=== PATIENT | male | born 1975 | race Caucasian/White ===

== ENCOUNTER 2017-07-20 08:51 | Day surgery (SDC) | payer OTHER ==
[2017-07-20] MEDS ORDERED: PROPOFOL 200 MG/20 ML VIAL As Ordered ×2 (08:53)
[2017-07-20] MEDS ORDERED: LIDOCAINE 2% INJ 100 MG/5 ML SDV (FOR ANES.) As Ordered (08:54)
[2017-07-20] MEDS: NS 1,000 ML IV (09:57)
[2017-07-20] MEDS ORDERED: fentaNYL 100 MCG/2 ML INJECTION (J3010) As Ordered (10:36)
== END 2017-07-20 11:37 | disposition home or self-care (01) ==
LOC: M OPP 08:51
DX: R13.10 Dysphagia, unspecified (principal); R12 Heartburn; K22.8 Other specified diseases of esophagus; K21.9 Gastro-esophageal reflux disease without esophagitis; Z79.899 Other long term (current) drug therapy; Z80.1 Family history of malignant neoplasm of trachea, bronchus and lung; Z80.41 Family history of malignant neoplasm of ovary; Z80.0 Family history of malignant neoplasm of digestive organs
CPT/HCPCS: 43239

== ENCOUNTER 2017-11-12 10:28 | Day surgery (SDC) | payer OTHER ==
[~2017-11-12 10:28] MED LIST: CIPRODEX OTIC SUSP 7.5ML As Ordered
[2017-11-12] MEDS: LR 1,000 ML IV (11:07)
[2017-11-12] MEDS ORDERED: MIDAZOLAM INJ 2 MG/2 ML VIAL (J2250) As Ordered (12:35)
[2017-11-12] MEDS ORDERED: LIDOCAINE 2% INJ 100 MG/5 ML SDV (FOR ANES.) As Ordered (12:35)
[2017-11-12] MEDS ORDERED: PROPOFOL 200 MG/20 ML VIAL As Ordered ×2 (12:35→14:03)
[2017-11-12] MEDS ORDERED: fentaNYL 100 MCG/2 ML INJECTION (J3010) As Ordered (12:35)
[2017-11-12] MEDS ORDERED: dexameTHASONE 4 MG/ML 1ML VIAL (J1100) As Ordered ×2 (13:03)
[2017-11-12] MEDS ORDERED: KETOROLAC 60 MG/2 ML VIAL (J1885) As Ordered (13:03)
[2017-11-12] MEDS ORDERED: ONDANSETRON 4MG/2ML VIAL (J2405) As Ordered (13:03)
[2017-11-12] MEDS ORDERED: ONDANSETRON 4MG/2ML VIAL (J2405) IV (13:45)
[2017-11-12] MEDS ORDERED: IBUPROFEN 800 MG TAB PO (13:45)
[2017-11-12] MEDS ORDERED: fentaNYL 100 MCG/2 ML INJECTION (J3010) IV (13:45)
[2017-11-12] MEDS ORDERED: LR 1,000 ML IV (13:45)
[2017-11-12] MEDS ORDERED: PERCOCET 5MG/325MG TAB PO (13:45)
[2017-11-12] MEDS ORDERED: HYDROMORPHONE HCL 0.5 MG/ 0.5 ML SYRINGE (J1170 PER 1) IV (13:45)
== END 2017-11-12 14:13 | disposition home or self-care (01) ==
LOC: M SDC 10:28
DX: H65.21 Chronic serous otitis media, right ear (principal); H69.81 Other specified disorders of Eustachian tube, right ear
CPT/HCPCS: 69436

== ENCOUNTER 2020-02-17 16:20 | Emergency (ER) | payer OTHER ==
[~2020-02-17] VITALS: Ht 170.2 cm; Wt 71.5 kg
[~2020-02-17 16:20] MED LIST changes: -CIPRODEX OTIC SUSP 7.5ML As Ordered; +FLOV100A3 IN; +OMEP40CA97 PO
[2020-02-17] MEDS ORDERED: MELO15TA28 PO (16:27)
[2020-02-17 17:47] VITALS: BP 135/83
== END 2020-02-17 18:06 | disposition home or self-care (01) ==
LOC: M ED 16:20
DX: R09.89 Other specified symptoms and signs involving the circulatory and respiratory systems (principal); K21.9 Gastro-esophageal reflux disease without esophagitis; Z79.899 Other long term (current) drug therapy

== ENCOUNTER 2021-04-25 15:46 | Inpatient (IN) | payer OTHER ==
[~2021-04-25] VITALS: Ht 152.4 cm; Wt 77.8 kg
[~2021-04-25 15:46] MED LIST changes: +FLOV100A IN; -FLOV100A3 IN; +MELO15TA28 PO; +OMEP40CA4 PO; -OMEP40CA97 PO
[2021-04-25] MEDS ORDERED: WELL100T2 PO (16:05)
--- NOTE | 2021-04-25 16:50 | REP ---
INDICATION: CVA - LEFT FACIAL DROOP COMPARISON: None. TECHNIQUE: Axial noncontrast images from the skull base to the vertex with coronal reformations. This CT examination was performed using the following dose reduction techniques: Automated exposure control, adjustment of mA and/or kv according to the patient's size, and use of iterative reconstruction technique. FINDINGS: The ventricles, sulci, and cisterns are normal in position and appearance. Trin[place]-white differentiation is maintained. No acute intracranial hemorrhage, mass/mass effect, pathology or trauma/injury. No evidence for acute infarction. No extra-axial fluid collection. Calvarium is intact. Paranasal sinuses and mastoid air cells are clear. IMPRESSION: Normal noncontrast head CT. No evidence for acute intracranial pathology or trauma/injury. <Electronically signed by Driss Simental > 04/25/21 [id number]
--- NOTE | 2021-04-25 16:56 | REP ---
INDICATION: CVA. COMPARISON: None. TECHNIQUE: Single portable AP view of the chest was performed. FINDINGS: There is no acute infiltrate or pulmonary edema. Lungs are clear. The heart is not significantly enlarged. The mediastinal silhouette is unremarkable. The visualized osseous structures are intact. IMPRESSION: No acute pulmonary disease. <Electronically signed by Toribio Trinidad > 04/25/21 [id number]
[2021-04-25 17:05] LABS: BASO # 0.1 10^3/uL (0.0-0.2); BASO % 0.9 % (0.0-1.0); EOS # 0.4 10^3/uL (0.0-0.5); EOS % 5.5 % (0.0-3.0); HEMATOCRIT 45.2 % (42.0-52.0); HEMOGLOBIN 15.2 g/dl (13.5-17.5); LYMPH # 2.3 10^3/uL (1.5-5.0); LYMPH % 30.2 % (24.0-44.0); MEAN CORPUSCULAR HEMOGLOBIN 29.3 pg (27.0-33.0); MEAN CORPUSCULAR HGB CONC 33.6 g/dl (32.0-36.5); MEAN CORPUSCULAR VOLUME 87.3 fl (80.0-96.0); MONO # 0.9 10^3/uL (0.0-0.8); MONO % 11.3 % (2.0-8.0); NEUTROPHILS # 3.9 10^3/uL (1.5-8.5); NEUTROPHILS % 51.3 % (36.0-66.0); PLATELET COUNT, AUTOMATED 342 10^3/uL (150-450); RED BLOOD COUNT 5.18 10^6/uL (4.30-6.10); WHITE BLOOD COUNT 7.5 10^3/uL (4.0-10.0)
[2021-04-25 17:16] LABS: BLOOD UREA NITROGEN 15 MG/DL (7-18); CALCIUM LEVEL 9.6 MG/DL (8.5-10.1); CARBON DIOXIDE LEVEL 28 MEQ/L (21-32); CHLORIDE LEVEL 105 MEQ/L (98-107); CREATININE FOR GFR 0.88 MG/DL (0.70-1.30); GLOMERULAR FILTRATION RATE > 60.0 (>60); GLUCOSE, FASTING 87 MG/DL (70-100); POTASSIUM SERUM 4.2 MEQ/L (3.5-5.1); SODIUM LEVEL 139 MEQ/L (136-145)
[2021-04-25] MEDS ORDERED: ASPIRIN 325 MG TAB PO ONE (17:25)
[2021-04-25] MEDS ORDERED: ENOXAPARIN 40MG/0.4ML SYRINGE (J1650 PER 10MG) SC SCH (18:00)
[2021-04-25 18:08] LABS: RSV AMPLIFICATION NEGATIVE (NEGATIVE)
[2021-04-25 18:12] LABS: INR 1.01; PROTHROMBIN TIME 13.7 SECONDS (12.7-14.5)
[2021-04-25] MEDS ORDERED: HOME MED LIST COMPLETE! XX SCH (18:15)
--- NOTE | 2021-04-25 18:21 | HPEPDOC ---
[facility] Medical History & Physical Date of Admission Apr 25, 2021 Date of Service: Apr 25, 2021 History and Physical CHIEF COMPLAINT: "all this", pointed to face HISTORY OF PRESENT ILLNESS: 45-year-old male presented emergency room department with complaints of facial weakness. His symptoms began approximately 3 to 4 days ago with his noticing he is unable to close his left eye. He recollects approximately 3 to 4 weeks ago being evaluated for an ear infection and at the time having numbness around the region and believes his symptoms started then. He then began to have tongue deviation, facial droop, and decreased sensation over the left side of his face which he feels been more prominent since the last 3 to 4 days. Denies fever, chills, headache, blurry vision, focal weakness, abdominal pain, nausea, vomiting, problems with urination and bowel movements. Denies bowel bladder incontinence, saddle anesthesia. Of note, patient has had recurrent ear infections and was evaluated approximately 3 to 4 weeks ago and placed on Augmentin for 10 days. He was to see have a ENT evaluation in the next week or 2. He reports blowing his nose hard enough causing, what he believes, now is to his left eardrum. At this junction, he denies discharge, fever, chills, problems with hearing. In the emergency room department his vitals and laboratory work-up was fairly unremarkable. A CT scan of the brain was done and showed no acute pathology. He was admitted to hospitalist service to rule out a stroke. 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 Denies smoking, drinking, use of recreational drugs FAMILY HISTORY: Mother: Cervical cancer ALLERGIES: Please see below. REVIEW OF SYSTEMS: 10 point review of system was negative except for what is noted in the HPI HOME MEDICATIONS: Please see below. PHYSICAL EXAMINATION: VITAL SIGNS: Please see below General: Lying in bed, no acute distress Head/Neck/Throat: Trachea midline, mucous membranes moist. Otoscope was utilized right ear canal revealed cerumen, tympanic membrane was unremarkable. Left ear canal revealed a erythema around the 3 o'clock position, there is no discharge or hemorrhage appreciated. Eyes: Sclera anicteric, no erythema or discharge appreciated bilaterally Thorax: Normal respiratory effort on room air, lungs clear to auscultation bilaterally, no wheezes/rales/rhonchi Cardiovascular: Normal rate, regular rhythm, normal S1, S2; radial and dorsal pedis pulses are palpable and 2+ Abdomen: Bowel sounds present, soft/nontender/nondistended Genitourinary: No CVA tenderness, no Tompkins in place Musculoskeletal: Moving all extremities, no edema Skin: Warm, dry Neurologic: AAOx3. Cranial nerves II -12 intact, except for: He is able to close his left eye but decreased strength; tongue deviation to the right, but able to move it past midline to left/right/up and down; unable to flare left nostril; decreased sensation in V1, V2, and V3 when compared to contralateral side; left facial droop; when asked to puff his cheeks they are easily depressed. Strength in the upper and lower extremity 5/5. Sensation to gross touch in the upper and lower extremities intact. Cerebellar examination including [id number], [id number] is normal, there is no dysdiadochokinesia. No swelling on standing. Patellar and biceps reflex intact. Babinski's normal LABORATORY DATA: See below. IMAGING: Please see imaging section MICROBIOLOGY: Please see below. ASSESSMENTPLAN: 45-year-old male presented emergency room department with left-sided facial weakness. #Facial weakness -Rule out CVA: Follow-up on MRI of the brain, MRA of the neck, carotid ultrasounds, echocardiogram with agitated saline. 325 mg aspirin given in the emergency room department, will continue with 81 mg daily. Atorvastatin 40 mg. PT/OT/speech. #GERD -Continue with omeprazole #DVT prophylaxis -Lovenox Vital Signs Vital Signs Date Time Temp Pulse Resp B/P (MAP) Pulse Ox O2 Delivery O2 Flow Rate FiO2 04/25/21 17:15 66 122/74 (90) 98 Room Air 04/25/21 16:53 18 04/25/21 15:48 98.0 Laboratory Data Labs 24H Laboratory Tests 2 04/25/21 16:38: Immature Granulocyte % (Auto) 0.8, Neutrophils (%) (Auto) 51.3, Lymphocytes (%) (Auto) 30.2, Monocytes (%) (Auto) 11.3H, Eosinophils (%) (Auto) 5.5H, Basophils (%) (Auto) 0.9, Neutrophils # (Auto) 3.9, Lymphocytes # (Auto) 2.3, Monocytes # (Auto) 0.9H, Eosinophils # (Auto) 0.4, Basophils # (Auto) 0.1, Nucleated Red Blood Cells % (auto) 0.0, Anion Gap 6L, Glomerular Filtration Rate > 60.0, Calcium Level 9.6 04/25/21 16:39: Coronavirus (COVID-19)(PCR) NEGATIVE, Influenza Type A (RT-PCR) NEGATIVE, Influ lillie Type B (RT-PCR) NEGATIVE, Respiratory Syncytial Virus (PCR) NEGATIVE 04/25/21 17:33: CBC/BMP Laboratory Tests 04/25/21 16:38 Home Medications Scheduled Bupropion HCl (Wellbutrin Sr) 100 Mg Tab.sr.12h, 100 MG PO DAILY Omeprazole (Omeprazole) 40 Mg Cap, 20 MG PO DAILY Allergies Coded Allergies: No Known Allergies (Unverified , 11/09/17) A-FIB/CHADSVASC A-FIB History Current/History of A-Fib/PAF?: No ANEL ESCAMILLA M.D. Apr 25, 2021 18:21
--- NOTE | 2021-04-25 18:49 | REP ---
INDICATION: Assess stenosis TECHNIQUE: Carotid ultrasonography was performed bilaterally FINDINGS: Right: CCA systolic: 116 centimeters/second CCA diastolic: 28 centimeters/second ICA systolic: 90.9 centimeters/second ICA diastolic: 22.2 centimeters/second ICA CCA ratio: 0.78 Left: CCA systolic: 107.0 centimeters/second CCA diastolic: 23.7 centimeters/second ICA systolic: 83.6 centimeters/second ICA diastolic: 24.6 centimeters/second ICA CCA ratio: Vertebral artery: Right: Antegrade flow left: Antegrade flow There is no significant plaque formation identified. IMPRESSION: According to the SRU criteria the examination is within normal limits. <Electronically signed by Bertram Infante > 04/25/21 [id number]
[2021-04-25 18:56] LABS: CHOLESTEROL LEVEL 272 MG/DL (<200); CHOLESTEROL RISK RATIO 3.317 (<5); HDL CHOLESTEROL 82 MG/DL (>40); LDL CHOLESTEROL 175 MG/DL (<100); NON-HDL-C 190 MG/DL; THYROID STIMULATING HORMONE 0.978 uIU/ML (0.358-3.740); TRIGLYCERIDES LEVEL 73 MG/DL (<150)
[2021-04-25 19:20] LABS: HEMOGLOBIN A1c 5.3 %
[2021-04-25 19:23] LABS: FOLATE 15.8 NG/ML; VITAMIN B12 LEVEL 1174 PG/ML
[2021-04-25] MEDS ORDERED: ATORVASTATIN 20 MG TAB PO SCH (21:00)
[2021-04-25 21:45] VITALS: BP 134/86
--- NOTE | 2021-04-25 21:48 | REPVR ---
PROCEDURE INFORMATION: Exam: MR Head Without Contrast Exam date and time: 04/25/2021 8:49 PM Age: 45 years old Clinical indication: Weakness, facial; Additional info: Facial weakness- cant blink left eye, tongue dev. RT TECHNIQUE: Imaging protocol: MR of the head without contrast. COMPARISON: CT Head without contrast 04/25/2021 4:40 PM FINDINGS: No abnormal restriction of diffusion to indicate acute CVA. Midline structures and cerebellar tonsillar position appear normal. Ventricles, cisterns and sulci are symmetric and normal for age. No intracranial mass, midline shift or abnormal extra-axial fluid. No acute intracranial hemorrhage. No abnormal white matter signal on FLAIR and T2 sequences. Optic chiasm and pituitary infundibulum appear normal. Normal vascular flow voids in major intracranial arteries and dural venous sinuses. Paranasal sinuses are normally aerated. Minimal ethmoid air cell mucosal thickening Mastoid air cells are bilaterally sclerotic. No middle ear fluid. Optic globes and orbits are unremarkable. IMPRESSION: Sclerotic mastoid air cells with left mastoid fluid, not involving the left middle ear. Indeterminate chronicity Electronically signed by: Lalo Mathew On 04/25/2021 21:47:33 PM
--- NOTE | 2021-04-25 21:52 | REPVR ---
PROCEDURE INFORMATION: Exam: MRA Neck Without Contrast Exam date and time: 04/25/2021 8:49 PM Age: 45 years old Clinical indication: Weakness; Additional info: Facial weakness TECHNIQUE: Imaging protocol: Magnetic resonance angiography of the neck without contrast. COMPARISON: US Duplex,carotid (complete) 04/25/2021 6:18 PM FINDINGS: Bilateral common carotid arteries, carotid bulbs, internal carotids and proximal external carotid branches show normal symmetric luminal caliber and flow signal. No high-grade stenosis. No occlusion or dissection. Bilateral vertebral arteries are normal in luminal caliber and flow signal to the level of the skull base. No dissection, or occlusion or focal stenosis. No abnormality of the great vessel origins from the aortic arch. IMPRESSION: Unremarkable MR angiogram of the neck. REFERENCES: NASCET CRITERIA. The degree of internal carotid artery stenosis is based on NASCET criteria. Normal is no stenosis. Mild is less than 50% stenosis. Moderate is 50-69% stenosis. Severe is 70% to 99% stenosis. Total occlusion is no detectable patent lumen. Electronically signed by: Lalo Mathew On 04/25/2021 21:52:16 PM
--- NOTE | 2021-04-26 00:48 | ECGEPIP ---
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
[2021-04-26 06:00] VITALS: BP 122/65
[2021-04-26 06:09] LABS: HEMATOCRIT 43.7 % (42.0-52.0); HEMOGLOBIN 14.9 g/dl (13.5-17.5); MEAN CORPUSCULAR HEMOGLOBIN 29.7 pg (27.0-33.0); MEAN CORPUSCULAR HGB CONC 34.1 g/dl (32.0-36.5); MEAN CORPUSCULAR VOLUME 87.1 fl (80.0-96.0); PLATELET COUNT, AUTOMATED 296 10^3/uL (150-450); RED BLOOD COUNT 5.02 10^6/uL (4.30-6.10); WHITE BLOOD COUNT 6.3 10^3/uL (4.0-10.0)
[2021-04-26 06:39] LABS: ALBUMIN 3.6 GM/DL (3.2-5.2); ALT/SGPT 42 U/L (12-78); BILIRUBIN,TOTAL 0.3 MG/DL (0.2-1.0); BLOOD UREA NITROGEN 19 MG/DL (7-18); CARBON DIOXIDE LEVEL 29 MEQ/L (21-32); CHLORIDE LEVEL 105 MEQ/L (98-107); CREATININE FOR GFR 0.91 MG/DL (0.70-1.30); GLOMERULAR FILTRATION RATE > 60.0 (>60); GLUCOSE, FASTING 109 MG/DL (70-100); MAGNESIUM LEVEL 2.3 MG/DL (1.8-2.4); POTASSIUM SERUM 4.3 MEQ/L (3.5-5.1); SODIUM LEVEL 139 MEQ/L (136-145); TOTAL PROTEIN 6.3 GM/DL (6.4-8.2)
[2021-04-26] MEDS ORDERED: OMEPRAZOLE 20 MG CAP PO SCH (09:00)
[2021-04-26] MEDS ORDERED: ASPIRIN 325 MG TAB PO SCH (09:00)
[2021-04-26] MEDS ORDERED: buPROPion (WELLBUTRIN SR) 100 MG SR TAB PO SCH (09:00)
[2021-04-26] MEDS ORDERED: ASPIRIN 81MG ENTERIC TABLET PO SCH (09:00)
--- NOTE | 2021-04-26 12:11 | REPVR ---
PROCEDURE INFORMATION: Exam: MRA Head Without Contrast; Arteriography Exam date and time: 04/26/2021 11:38 AM Age: 45 years old Clinical indication: Weakness; Additional info: Fascial weakness TECHNIQUE: Imaging protocol: Magnetic resonance angiography head without contrast. Exam focused on the arteries. COMPARISON: CT Head without contrast 04/25/2021 4:40 PM FINDINGS: ANTERIOR CIRCULATION: Right internal carotid artery: Intracranial segment is patent with no significant stenosis. No aneurysm. Right middle cerebral artery: No occlusion or significant stenosis. No aneurysm. Right anterior cerebral artery: No occlusion or significant stenosis. No aneurysm. Left internal carotid artery: Intracranial segment is patent with no significant stenosis. No aneurysm. Left middle cerebral artery: No occlusion or significant stenosis. No aneurysm. Left anterior cerebral artery: No occlusion or significant stenosis. No aneurysm. POSTERIOR CIRCULATION: Right vertebral artery: No occlusion or significant stenosis. No aneurysm. Left vertebral artery: No occlusion or significant stenosis. No aneurysm. Basilar artery: No occlusion or significant stenosis. No aneurysm. Right posterior cerebral artery: No occlusion or significant stenosis. No aneurysm. Left posterior cerebral artery: No occlusion or significant stenosis. No aneurysm. IMPRESSION: No stenosis or occlusion. Electronically signed by: Mirta Garces On 04/26/2021 12:10:29 PM
[2021-04-26 14:00] VITALS: BP 132/79
[2021-04-26] MEDS ORDERED: PRED10TA2 PO (14:17)
--- NOTE | 2021-04-26 14:36 | DS.PDOC ---
Discharge Summary General Date of Admission Apr 25, 2021 at 18:01 Date of Discharge 04/26/21 Discharge Summary DISCHARGE DIAGNOSES: Tejeda's palsy COMPLICATIONS/CHIEF COMPLAINT: Cva (Cerebral Vascular Accident). HOSPITAL COURSE: Mr. Tabares, was seen at [facility] on 04/25 with complaints of facial weakness. His symptoms began approximately 3 to 4 days ago with his noticing he was unable to close his left eye. He recollects approximately 3 to 4 weeks ago being evaluated for an ear infection and at the time having numbness around the region and believes his symptoms started then. He then began to have tongue deviation, facial droop, and decreased sensation over the left side of his face which he feels been more prominent 3 to 4 days prior to admission. An MRI of the brain, MRA of the brain, vascular ultrasound of the carotid arteries showed no acute pathology. The case was discussed with on-call neurology Dr. Teague and cerebrovascular accident was unlikely. His symptoms were felt to be due to Tejeda's palsy (despite tongue deviation and sparing of the forehead). He was started on a steroid regimen. He will follow up with the neurology team within 7 to 10 days. Of note, he is on Wellbutrin and he was explained being concomitantly on steroid made lower seizure threshold further. He reported he will hold his Wellbutrin as this was only being taken for him to help stop smoking. He was asked to follow-up with his primary care physician if his anxiety however to increase. Patient was evaluated by speech, physical, and occupational therapy. He was cleared. He had an echocardiogram done. Results are pending at the time of discharge. He will be following up with his primary care physician to obtain these results. Of note, patient has had recurrent ear infections and was evaluated approximately 3 to 4 weeks ago and placed on Augmentin for 10 days. He was explained about his MRI finding showing sclerotic mastoid air cells with left mastoid fluid. This was not involving the middle ear. He reported he has an appointment with an ENT within 2 weeks. DISCHARGE MEDICATIONS: Please see below. ALLERGIES: Please see below. PHYSICAL EXAMINATION ON DISCHARGE: VITAL SIGNS: Please see below. General: Lying in bed, no acute distress Head/Neck/Throat: Trachea midline, mucous membranes moist. Otoscope was utilized right ear canal revealed cerumen, tympanic membrane was unremarkable. Left ear canal revealed a erythema around the 3 o'clock position, there is no discharge or hemorrhage appreciated. Eyes: Sclera anicteric, no erythema or discharge appreciated bilaterally Thorax: Normal respiratory effort on room air, lungs clear to auscultation bilaterally, no wheezes/rales/rhonchi Cardiovascular: Normal rate, regular rhythm, normal S1, S2; radial and dorsal pe dis pulses are palpable and 2+ Abdomen: Bowel sounds present, soft/nontender/nondistended Genitourinary: No CVA tenderness, no Tompkins in place Musculoskeletal: Moving all extremities, no edema Skin: Warm, dry Neurologic: AAOx3. Cranial nerves II -12 intact, except for: He is able to close his left eye but decreased strength; tongue deviation to the right, but able to move it past midline to left/right/up and down; unable to flare left nostril; decreased sensation in V1, V2, and V3 when compared to contralateral side; left facial droop; when asked to puff his cheeks they are easily depressed. Strength in the upper and lower extremity 5/5. Sensation to gross touch in the upper and lower extremities intact. Cerebellar examination including qcoabb-[id number]-uwzz, hjfp-se-[id number] is normal, there is no dysdiadochokinesia. No swelling on standing. Patellar and biceps reflex intact. Babinski's normal LABORATORY DATA: Please see below. IMAGING: Please see imaging section. Patient asked to obtain records for his review and possible follows that may be required. PROGNOSIS: Good ACTIVITY: As tolerated. DIET: Regular DISPOSITION: Home DISCHARGE INSTRUCTIONS: As explained above DISCHARGE CONDITION: Stable. TIME SPENT ON DISCHARGE: 30 minutes. Vital Signs/I&Os Vital Signs Date Time Temp Pulse Resp B/P (MAP) Pulse Ox O2 Delivery O2 Flow Rate FiO2 04/26/21 14:00 97.3 72 17 132/79 (96) 98 Room Air I&O- Last 24 Hours up to 6 AM 04/26/21 06:00 Intake Total 240 ml Balance 240 ml Laboratory Data Labs 24H Laboratory Tests 2 04/25/21 16:38: Immature Granulocyte % (Auto) 0.8, Neutrophils (%) (Auto) 51.3, Lymphocytes (%) (Auto) 30.2, Monocytes (%) (Auto) 11.3H, Eosinophils (%) (Auto) 5.5H, Basophils (%) (Auto) 0.9, Neutrophils # (Auto) 3.9, Lymphocytes # (Auto) 2.3, Monocytes # (Auto) 0.9H, Eosinophils # (Auto) 0.4, Basophils # (Auto) 0.1, Nucleated Red Blood Cells % (auto) 0.0, Anion Gap 6L, Glomerular Filtration Rate > 60.0, Estimated Mean Plasma Glucose 105, Hemoglobin A1c 5.3, Calcium Level 9.6, Triglycerides Level 73, Total Cholesterol 272H, LDL Cholesterol 175H, Non-HDL Cholesterol (LDL + VLDL) 190, Total HDL Cholesterol 82, Cholesterol/HDL Ratio 3.317, Vitamin B12 Level 1174, Folate 15.8, Thyroid Stimulating Hormone (TSH) 0.978 04/25/21 16:39: Coronavirus (COVID-19)(PCR) NEGATIVE, Influenza Type A (RT-PCR) NEGATIVE, Influenza Type B (RT-PCR) NEGATIVE, Respiratory Syncytial Virus (PCR) NEGATIVE 04/25/21 17:33: Prothrombin Time 13.7, Prothromb Time International Ratio 1.01, Activated Partial Thromboplast Time 30.0 04/26/21 05:37: 04/26/21 05:40: Nucleated Red Blood Cells % (auto) 0.0, Anion Gap 5L, Glomerular Filtration Rate > 60.0, Calcium Level 9.0, Phosphorus Level 4.0, Magnesium Level 2.3, Total Bilirubin 0.3, Aspartate Amino Transf (AST/SGOT) 25, Alanine Aminotransferase (ALT/SGPT) 42, Alkaline Phosphatase 58, Total Protein 6.3L, Albumin 3.6, Albumin/Globulin Ratio 1.3 CBC/BMP Laboratory Tests 04/25/21 16:38 04/26/21 05:40 Discharge Medications Scheduled Bupropion HCl (Wellbutrin Sr) 100 Mg Tab.sr.12h, 100 MG PO DAILY, (Reported) Omeprazole (Omeprazole) 40 Mg Cap, 20 MG PO DAILY, (Reported) Prednisone (Prednisone) 10 Mg Tablet, 1 TAB PO DAILY 60mg x 7 days 50mg x 1 40mg x 1 30mg x 1 20mg x 1 10mg x 1 Allergies Coded Allergies: No Known Allergies (Unverified , 11/09/17) ANEL ESCAMILLA M.D. Apr 26, 2021 14:36
[2021-04-28 14:09] LABS: Lyme Disease IgG/IgM Antibodie <0.91 ISR (0.00-0.90); Lyme Disease IgM Ab Quantitati <0.80 index (0.00-0.79)
== END 2021-04-26 15:47 | disposition home or self-care (01) | DRG 74 ==
LOC: M ED 15:46 → M ED INP 18:01 → ENRESERV 20:18 → M MSPAV 21:32
PROVIDERS: ADMIT Internal Medicine; ATTEND Internal Medicine
DX: G51.0 Bell's palsy (principal); Z79.899 Other long term (current) drug therapy; K21.9 Gastro-esophageal reflux disease without esophagitis